=== PATIENT | female | born 1940 | race Caucasian/White ===

== ENCOUNTER 2021-09-06 10:49 | Emergency (ER) | payer OTHER ==
[~2021-09-06] VITALS: Ht 165.1 cm; Wt 65.8 kg
[2021-09-06] MEDS ORDERED: TOPROL XL100 M1 PO (11:12)
[2021-09-06] MEDS ORDERED: LIPITOR20 MG PO (11:13)
[2021-09-06] MEDS ORDERED: LASIX20 MG PO (11:13)
[2021-09-06] MEDS ORDERED: PLAVIX75 MG PO (11:13)
[2021-09-06] MEDS ORDERED: CARDURA XL4 MG PO (11:13)
[2021-09-06] MEDS ORDERED: ARICEPT10 MG PO (11:13)
[2021-09-06] MEDS ORDERED: BIDIL TABLET1 EACH (11:13)
[2021-09-06] MEDS ORDERED: MUPIROCIN1 G1 TOP (12:27)
== END 2021-09-06 12:31 | disposition home or self-care (01) ==
LOC: ER 10:49
DX: S00.83XA Contusion of other part of head, initial encounter (principal); W18.09XA Striking against other object with subsequent fall, initial encounter; Y93.89 Activity, other specified; Y92.018 Other place in single-family (private) house as the place of occurrence of the external cause; Y99.8 Other external cause status

== ENCOUNTER 2023-02-23 14:01 | Emergency (ER) | payer OTHER ==
[~2023-02-23] VITALS: Ht 165.1 cm; Wt 68.0 kg
[~2023-02-23 14:01] MED LIST: ARICEPT10 MG PO; BIDIL TABLET1 EACH; CARDURA XL4 MG PO; LASIX20 MG PO; LIPITOR20 MG PO; MUPIROCIN1 G1 TOP; PLAVIX75 MG PO; TOPROL XL100 M1 PO
[2023-02-23] MEDS ORDERED: NAMENDA XR28 MG (14:16)
== END 2023-02-23 20:20 | disposition home or self-care (01) ==
LOC: ER 14:01
DX: S79.812A Other specified injuries of left hip, initial encounter (principal); S79.811A Other specified injuries of right hip, initial encounter; S39.82XA Other specified injuries of lower back, initial encounter; S39.83XA Other specified injuries of pelvis, initial encounter; W07.XXXA Fall from chair, initial encounter; Y93.89 Activity, other specified; Y92.89 Other specified places as the place of occurrence of the external cause; Y99.8 Other external cause status; Z88.0 Allergy status to penicillin; Z88.6 Allergy status to analgesic agent

== ENCOUNTER 2023-09-02 07:18 | Outpatient (CLI) | payer OTHER ==
[~2023-09-02 07:18] MED LIST changes: +ELIQUIS2.5 MG PO; +NAMENDA XR28 MG; +TRAZODONE HCL50 MG PO
== END 2023-09-02 07:22 | disposition home or self-care (01) ==
LOC: NUCLEAR 07:18
PROVIDERS: ATTEND Specialist
DX: D35.1 Benign neoplasm of parathyroid gland (principal)
CPT/HCPCS: 78072; A9500

== ENCOUNTER 2024-01-08 12:27 | Emergency (ER) | payer OTHER ==
[~2024-01-08] VITALS: Ht 160 cm; Wt 63.5 kg
[2024-01-08] MEDS ORDERED: 0.9 % SODIUM CHLORIDE 1,000 ML IV SCH (13:30)
[2024-01-08 14:00] LABS: HEMATOCRIT 42.5 % (36.0-45.00); HEMOGLOBIN 14.7 g/dL (12.0-15.00); MEAN CELL VOLUME 95.5 fL (80.00-100.00); MEAN CORPUSCULAR HGB CONC 34.6 g/dl (32.0-36.0); PLATELET COUNT 226 K/uL (150-450); RED BLOOD COUNT 4.45 M/uL (4.00-6.00); RED CELL DISTRIBUTION WIDTH 13.6 % (11.5-14.5)
[2024-01-08 14:24] LABS: INR 1.07; PARTIAL THROMBOPLASTIN TIME 29.7 SECONDS (22.0-34.0)
[2024-01-08 14:27] LABS: CALCIUM 9.2 mg/dL (8.5-10.1); CREATININE SERUM 0.99 mg/dL (0.55-1.02); GFR 53.57; POTASSIUM 3.84 mEq/L (3.5-5.1)
[2024-01-08 14:55] LABS: PROTHROMBIN TIME 11.2 SECONDS (9.0-11.5)
[2024-01-08 15:37] LABS: PH,URINE 6.5 (5.0-8.0); URINE APPEARANCE Turbid; URINE BILIRRUBIN Negative (NEGATIVE); URINE BLOOD Moderate; URINE COLOR Yellow; URINE GLUCOSE Negative (NEGATIVE); URINE LEUKOCYTE Large; URINE NITRATE Positive; URINE PROTEIN Trace (NEGATIVE)
[2024-01-08 15:38] LABS: URINE EPITHELIAL CELLS 3.2 uL (0.0-38.8); URINE RBC 23.5 uL (0.0-20.8); URINE WBC 3545.8 uL (0.0-23.2)
[2024-01-08 17:13] LABS: URINE BACTERIA > 9821.2 uL (0.0-1933)
[2024-01-08] MEDS ORDERED: BACTRIM DS TAB1 EACH PO (17:29)
== END 2024-01-08 21:42 | disposition left against medical advice (07) ==
LOC: ER 12:27
PROVIDERS: Emergency Medicine
DX: N39.0 Urinary tract infection, site not specified (principal); M79.604 Pain in right leg; M79.605 Pain in left leg; I10 Essential (primary) hypertension; Z88.0 Allergy status to penicillin; Z88.6 Allergy status to analgesic agent
CPT/HCPCS: 36415; 51702; 70450; 72131; 93005; 96365; 96366; 99284; J7030

== ENCOUNTER 2024-01-18 09:50 | Inpatient (IN) | payer OTHER ==
[~2024-01-18] VITALS: Ht 165.1 cm; Wt 64.4 kg
[~2024-01-18 09:50] MED LIST changes: +BACTRIM DS TAB1 EACH PO
[2024-01-18] MEDS ORDERED: 0.9 % SODIUM CHLORIDE 1,000 ML IV SCH ×2 (10:15→14:30)
[2024-01-18 11:17] LABS: HEMATOCRIT 42.7 % (36.0-45.00); HEMOGLOBIN 14.9 g/dL (12.0-15.00); MEAN CELL VOLUME 93.9 fL (80.00-100.00); MEAN CORPUSCULAR HEMOGLOBIN 32.8 pg (27.00-32.0); MEAN CORPUSCULAR HGB CONC 34.9 g/dl (32.0-36.0); PLATELET COUNT 354 K/uL (150-450); RED BLOOD COUNT 4.55 M/uL (4.00-6.00)
[2024-01-18 11:43] LABS: URINE APPEARANCE Clear; URINE BILIRRUBIN Negative (NEGATIVE); URINE BLOOD Negative; URINE COLOR Yellow; URINE GLUCOSE Negative (NEGATIVE); URINE LEUKOCYTE Moderate; URINE NITRATE Negative; URINE PROTEIN Negative (NEGATIVE)
[2024-01-18 11:47] LABS: URINE BACTERIA 52.9 uL (0.0-1933); URINE EPITHELIAL CELLS 6.4 uL (0.0-38.8); URINE RBC 9.7 uL (0.0-20.8); URINE WBC 136.6 uL (0.0-23.2)
[2024-01-18] MEDS ORDERED: FAMOTIDINE/PF 20 MG/2 ML VIAL IV SCH (14:26)
[2024-01-18] MEDS ORDERED: VANCOMYCIN HCL 1,000 MG VIAL IV SCH (14:26)
[2024-01-18] MEDS ORDERED: APIXABAN 2.5 MG TABLET PO SCH (14:27)
[2024-01-18] MEDS ORDERED: ISOSORBIDE DINITRATE 5 MG TABLET PO SCH (14:28)
[2024-01-18] MEDS ORDERED: DONEPEZIL HCL 10 MG TABLET PO SCH (14:28)
[2024-01-18] MEDS ORDERED: LOSARTAN POTASSIUM 100 MG TABLET PO SCH (14:28)
[2024-01-18] MEDS ORDERED: TRAZODONE HCL 50 MG TABLET PO SCH (14:29)
[2024-01-18] MEDS ORDERED: MEMANTINE HCL 10 MG TABLET PO SCH (14:29)
[2024-01-18] MEDS ORDERED: ONDANSETRON HCL 4 MG in 0.9 % SODIUM CHLORIDE 50 ML IV PRN (14:30)
[2024-01-18 18:21] LABS: INR 1.19; PARTIAL THROMBOPLASTIN TIME 30.2 SECONDS (22.0-34.0); PROTHROMBIN TIME 12.3 SECONDS (9.0-11.5)
[2024-01-18 18:25] LABS: ABG PH 7.463 (7.35-7.45); ABG pCO2 35.9 mmHg (35-45)
[2024-01-18 18:26] LABS: ABG PO2 84.4 mmHg (80-100); BASE EXCESS 1.7 mmol/l; BICARBONATE 25.1 mmol/l (23-25); Tco2 26.2 mmol/l; allen test SATISFACTORY; o2 21 %; puncture site RADIAL LEFT
[2024-01-18 18:40] LABS: CALCIUM 8.4 mg/dL (8.5-10.1); CREATININE SERUM 0.61 mg/dL (0.55-1.02); GFR 93.67; POTASSIUM 4.15 mEq/L (3.5-5.1)
[2024-01-18 18:53] LABS: C-REACTIVE PROTEIN 2.88 MG/DL (0.00-0.29); CKMB 20.6 NG/ML (0.5-3.6)
[2024-01-19] MEDS ORDERED: APIXABAN 2.5 MG TABLET PO SCH (17:00)
[2024-01-20] MEDS ORDERED: METROnidazole 500 MG TABLET PO SCH (01:00)
[2024-01-20 06:15] LABS: HEMATOCRIT 37.4 % (36.0-45.00); HEMOGLOBIN 12.6 g/dL (12.0-15.00); MEAN CELL VOLUME 94.6 fL (80.00-100.00); MEAN CORPUSCULAR HEMOGLOBIN 31.9 pg (27.00-32.0); MEAN CORPUSCULAR HGB CONC 33.7 g/dl (32.0-36.0); PLATELET COUNT 268 K/uL (150-450); RED BLOOD COUNT 3.95 M/uL (4.00-6.00); RED CELL DISTRIBUTION WIDTH 13.1 % (11.5-14.5)
[2024-01-20 07:04] LABS: BILIRUBIN TOTAL 0.57 mg/dL (0.3-1.2); CALCIUM 7.7 mg/dL (8.5-10.1); CREATININE SERUM 0.69 mg/dL (0.55-1.02); GFR 81.25; GLOBULINA 3.4 G/DL (2.4-3.5); POTASSIUM 3.88 mEq/L (3.5-5.1); TOTAL PROTEIN 5.4 gm/dL (6.4-8.2)
[2024-01-20] MEDS ORDERED: LOSARTAN POTASSIUM 25 MG TABLET PO SCH (09:00)
[2024-01-20] MEDS ORDERED: CEFTRIAXONE SODIUM 2,000 MG in 0.9 % SODIUM CHLORIDE 100 ML IV SCH (09:00)
[2024-01-20] MEDS ORDERED: PATIENTS OWN MEDICATION (MEDICAMENTO EN PISO) PO SCH ×2 (09:00)
[2024-01-21] MEDS ORDERED: ACETAMINOPHEN 500 MG GEL..CAP PO PRN (18:00)
[2024-01-21] MEDS ORDERED: FAMOtidine 20 MG TABLET PO SCH (21:00)
[2024-01-22] MEDS ORDERED: MINERAL OIL 30 ML BLIST.PACK PO ONE (17:00)
[2024-01-22] MEDS ORDERED: MAGNESIUM HYDROXIDE 30 ML BLIST.PACK PO ONE (17:00)
[2024-01-22] MEDS ORDERED: LACTULOSE 20 G/30 ML BLIST.PACK PO ONE (17:00)
[2024-01-23] MEDS ORDERED: DOCUSATE CALCIUM 240 MG CAPSULE PO SCH (09:00)
[2024-01-24 07:42] LABS: HEMATOCRIT 36.8 % (36.0-45.00); HEMOGLOBIN 12.7 g/dL (12.0-15.00); MEAN CORPUSCULAR HEMOGLOBIN 31.9 pg (27.00-32.0); MEAN CORPUSCULAR HGB CONC 34.6 g/dl (32.0-36.0); PLATELET COUNT 274 K/uL (150-450); RED CELL DISTRIBUTION WIDTH 13.2 % (11.5-14.5)
[2024-01-24 08:29] LABS: BILIRUBIN TOTAL 0.4 mg/dL (0.3-1.2); CALCIUM 7.7 mg/dL (8.5-10.1); CREATININE SERUM 0.49 mg/dL (0.55-1.02); GFR 120.32; GLOBULINA 3.3 G/DL (2.4-3.5); POTASSIUM 3.51 mEq/L (3.5-5.1); TOTAL PROTEIN 5.3 gm/dL (6.4-8.2)
[2024-01-24] MEDS ORDERED: ZINC OXIDE 30 GM,NYSTATIN 15 GM,SILVER SULFADIAZINE 50 GM TOP SCH (17:40)
[2024-01-25] MEDS ORDERED: METOPROLOL SUCCINATE 50 MG TAB.SR.24H PO SCH (14:43)
[2024-01-25] MEDS ORDERED: LIDOCAINE HCL 100 MG/10ML VIAL ONE (16:59)
[2024-01-25] MEDS ORDERED: ENOXAPARIN SODIUM 60 MG/0.6 ML SYRINGE SUBCUTANEO SCH (21:00)
[2024-01-26] MEDS ORDERED: GUAIFENESIN 200 MG/10 ML BLIST.PACK PO SCH (12:00)
[2024-01-26] MEDS ORDERED: APIXABAN 2.5 MG TABLET PO SCH (17:00)
[2024-01-27] MEDS ORDERED: METOCLOPRAMIDE HCL 5 MG/ML VIAL ONE (12:12)
[2024-01-27] MEDS ORDERED: DEXAMETHASONE SODIUM PHOSP/PF 10 MG/ML VIAL ONE (12:14)
[2024-01-27] MEDS ORDERED: METOPROLOL SUCCINATE 50 MG TAB.SR.24H PO SCH (17:00)
[2024-01-28] MEDS ORDERED: METROnidazole 500 MG TABLET PO SCH (01:00)
[2024-01-28 07:00] LABS: HEMATOCRIT 33.6 % (36.0-45.00); HEMOGLOBIN 11.8 g/dL (12.0-15.00); MEAN CORPUSCULAR HEMOGLOBIN 32.6 pg (27.00-32.0); MEAN CORPUSCULAR HGB CONC 35.1 g/dl (32.0-36.0); PLATELET COUNT 225 K/uL (150-450); RED BLOOD COUNT 3.62 M/uL (4.00-6.00); RED CELL DISTRIBUTION WIDTH 13.6 % (11.5-14.5)
[2024-01-28 07:49] LABS: ALBUMIN 1.8 gm/dL (3.4-5.0); BILIRUBIN TOTAL 0.27 mg/dL (0.3-1.2); CALCIUM 7.6 mg/dL (8.5-10.1); CREATININE SERUM 0.43 mg/dL (0.55-1.02); GFR 139.89; POTASSIUM 3.54 mEq/L (3.5-5.1); TOTAL PROTEIN 4.8 gm/dL (6.4-8.2)
[2024-01-28] MEDS ORDERED: IPRATROPIUM BROMIDE 0.5 MG/2.5 ML AMPUL.NEB IH SCH (12:00)
[2024-01-30 11:56] LABS: HEMATOCRIT 33.5 % (36.0-45.00); HEMOGLOBIN 11.5 g/dL (12.0-15.00); MEAN CELL VOLUME 92.3 fL (80.00-100.00); MEAN CORPUSCULAR HEMOGLOBIN 31.7 pg (27.00-32.0); MEAN CORPUSCULAR HGB CONC 34.4 g/dl (32.0-36.0); PLATELET COUNT 196 K/uL (150-450); RED BLOOD COUNT 3.63 M/uL (4.00-6.00); RED CELL DISTRIBUTION WIDTH 13.7 % (11.5-14.5)
[2024-01-30] MEDS ORDERED: SODIUM CHLORIDE 0.45 % 1,000 ML IV SCH (12:30)
[2024-01-30 12:39] LABS: ALBUMIN 1.7 gm/dL (3.4-5.0); BILIRUBIN TOTAL 0.2 mg/dL (0.3-1.2); CALCIUM 7.7 mg/dL (8.5-10.1); CREATININE SERUM 0.56 mg/dL (0.55-1.02); GFR 103.13; POTASSIUM 3.52 mEq/L (3.5-5.1); TOTAL PROTEIN 4.7 gm/dL (6.4-8.2)
[2024-01-30] MEDS ORDERED: LEVALBUTEROL HCL 0.63 MG/3 ML SOLUTION IH SCH (12:43)
== END 2024-02-01 16:17 | disposition home or self-care (01) | DRG 579 ==
LOC: ER 09:50 → SEC-K 14:47 → MEDI 14:47 → MEDJ 01-23 09:20
PROVIDERS: Emergency Medicine; General Practice; Student in an Organized Health Care Education/Training Program; ADMIT Internal Medicine; ATTEND Internal Medicine
PROC: 0JD70ZZ Extraction of Back Subcutaneous Tissue and Fascia, Open Approach (ICD-10-PCS; principal; 2024-01-25)
DX: L89.153 Pressure ulcer of sacral region, stage 3 (principal); J18.9 Pneumonia, unspecified organism; L97.529 Non-pressure chronic ulcer of other part of left foot with unspecified severity; L08.9 Local infection of the skin and subcutaneous tissue, unspecified; B96.20 Unspecified Escherichia coli [E. coli] as the cause of diseases classified elsewhere; B96.5 Pseudomonas (aeruginosa) (mallei) (pseudomallei) as the cause of diseases classified elsewhere; B95.2 Enterococcus as the cause of diseases classified elsewhere; B96.4 Proteus (mirabilis) (morganii) as the cause of diseases classified elsewhere; B96.89 Other specified bacterial agents as the cause of diseases classified elsewhere; G30.9 Alzheimer's disease, unspecified; F02.80 Dementia in other diseases classified elsewhere, unspecified severity, without behavioral disturbance, psychotic disturbance, mood disturbance, and anxiety; E78.5 Hyperlipidemia, unspecified; Z74.01 Bed confinement status; I25.10 Atherosclerotic heart disease of native coronary artery without angina pectoris; I10 Essential (primary) hypertension; Z20.822 Contact with and (suspected) exposure to COVID-19

== ENCOUNTER 2024-05-07 16:10 | Inpatient (IN) | payer OTHER ==
[~2024-05-07] VITALS: Ht 152.4 cm; Wt 47.6 kg
[~2024-05-07 16:10] MED LIST changes: +LIPITOR40 M1 PO; +TOPROL XL25 M1 PO
--- NOTE | 2024-05-07 16:21 | NUR ---
SE RECIBE PACIENTE ALERTA Y ACTIVA EN COMPANIA DE FAMILIAR Y PARAMEDICOS DE AMBULANCIA. LOS CUALES REFIERE QUE PACIENTE AVITIA ESTADO PRESENTANDO SINTOMAS DE HEMATOMAS EN EXTREMIDADES INFERIORES. AL MOMENTO FAMILIAR DE PTE REFIERE QUE ESTA EN TRATAMIENTO POR ULCERAS DE PRESION EN AREA SACRAL Y EN PIERNA IZQUIERDA CON PARCHOS DE ALLEVYN. FAMILIAR REFIERE QUE PTE ESTUVO HOSPITALIZADA Y SE LE MARTA DE SARANYA EL PASADO NICCI CON ANTIBIOTICOS PARA EL HOGAR.
--- NOTE | 2024-05-07 20:42 | NUR ---
MR CHAN ORIENTA PTE Y FAMILIAR SOBRE NAVARRO DE MUESTRAS LAS CUALES SE EXTRAEN BAJO MEDIDAS ASEPTICAS Y SE ENVIAN A LAB.
[2024-05-07 21:47] LABS: HEMATOCRIT 38.5 % (36.0-45.00); HEMOGLOBIN 12.9 g/dL (12.0-15.00); MEAN CELL VOLUME 90.1 fL (80.00-100.00); MEAN CORPUSCULAR HEMOGLOBIN 30.1 pg (27.00-32.0); MEAN CORPUSCULAR HGB CONC 33.4 g/dl (32.0-36.0); PLATELET COUNT 248 K/uL (150-450); RED BLOOD COUNT 4.28 M/uL (4.00-6.00); RED CELL DISTRIBUTION WIDTH 14.7 % (11.5-14.5)
[2024-05-07 22:02] LABS: PH,URINE 5.5 (5.0-8.0); URINE APPEARANCE Cloudy; URINE BILIRRUBIN Negative (NEGATIVE); URINE BLOOD Trace; URINE COLOR Dark Yellow; URINE GLUCOSE Negative (NEGATIVE); URINE KETONE Negative (NEGATIVE); URINE LEUKOCYTE Moderate; URINE NITRATE Negative
[2024-05-07 22:06] LABS: URINE BACTERIA 3362.9 uL (0.0-1933); URINE CAST 7.17 uL (0.0-1.40); URINE EPITHELIAL CELLS 27.2 uL (0.0-38.8); URINE WBC 381.7 uL (0.0-23.2)
[2024-05-07 22:14] LABS: INR 1.4; PROTHROMBIN TIME 14.3 SECONDS (9.0-11.5)
[2024-05-07 22:28] LABS: ALBUMIN 2.3 gm/dL (3.4-5.0); BILIRUBIN TOTAL 0.9 mg/dL (0.3-1.2); CALCIUM 8.3 mg/dL (8.5-10.1); CREATININE SERUM 0.97 mg/dL (0.55-1.02); GFR 54.71; GLOBULINA 4.7 G/DL (2.4-3.5)
[2024-05-07 22:28] LABS: URINE PROTEIN 100 (NEGATIVE)
[2024-05-07 22:30] LABS: URINE YEAST MODERATE /hpf
[2024-05-07 22:38] LABS: POTASSIUM 2.81 mEq/L (3.5-5.1)
[2024-05-07] MEDS ORDERED: 0.9 % SODIUM CHLORIDE 1,000 ML IV SCH (23:45)
[2024-05-07] MEDS ORDERED: POTASSIUM CHLORIDE/D5W 20 MEQ/1,000 ML PIGGYBAG IV ONE (23:45)
--- NOTE | 2024-05-08 03:57 | NUR ---
SE RECIBE A PTE ALERTA Y ACTIVO EN COMPANIA DE FAMILIAR ES RECIBIDA A UNIDADA DE CRITICO. SE CONECTA A PTE A MONITOR CARDIACO CON BP CADA 30MIN. PTE CON CANALIZACION #24 EN BRAZO GHANSHYAM PATENTE BERNY DE EDEMA Y ERITEMA. SE SALVADOR MUESTRAS PENDIENTES Y SE ENVIAN.
--- NOTE | 2024-05-08 08:13 | NUR ---
7:00AM SE RECIBE PTE ALERTA Y DESORIENTADA EN CAMA #3 DE UNIDAD DE CRITICO. PTE EN CAMA CON BARANDAS ELEVADAS, CABECERA A 30 GRADOS, CONECTADA A MONITOR CARDIACO CON OXIMETRIA CONTINUA. PTE CON CN A 3LTS COLOCADA, SE OBSERVAN RESTRICCIONES X2 EN EXTREMIDADES SUPERIORES COLOCADAS. PTE CON H/L #24 EN BRAZO LT BERNY DE EDEMA CON 0.9NSS DE 1000ML BAJANDO A 20ML/HR Y [id number]/D5W DE 1000ML BAJANDO A 80ML/HR. PTE CON BELLA COLOCADO BAJANADO A GRAVEDAD. PTE CON ULCERA EN AREA SACRAL, SE KHAI CAMBIOS DE POSICION A PTE. SE MIDEN S/V A PTE Y SE DOCUMENTAN. PTE EN ESPERA DE CONSULTA CON MEDICINA INTERA. PTE CON DNR+DNI+NO DIALYSIS+NO TRANSFUSIONES FIRMADO POR FAMILIAR. 8:00AM SE ORIENTA A FAMILIAR SOBRE PROTOCOLO DE UNIDAD DE CRITICO, FAMILIAR REFIERE ENTENDER Y SE RETIRA. SE CANALIZA A PTE EN BRAZO RT CON #18 UTILIZANDO MEDIDAS ASEPTICAS. SE MIDEN S/V A PTE Y SE DOCUMENTAN.
[2024-05-08] MEDS ORDERED: MORPHINE SULFATE 4 MG/ML VIAL IV PRN (11:15)
[2024-05-08] MEDS ORDERED: ENALAPRILAT DIHYDRATE 1.25 MG/ML VIAL IV PRN (11:15)
[2024-05-08] MEDS ORDERED: ONDANSETRON HCL 2 MG/ML VIAL IV PRN (11:15)
[2024-05-08] MEDS ORDERED: POTASSIUM CHLORIDE 20MEQ/100ML H2O PB IV ONE (11:15)
[2024-05-08] MEDS ORDERED: HALOPERIDOL LACTATE 5 MG/ML AMPUL IM PRN (11:15)
[2024-05-08] MEDS ORDERED: MORPHINE SULFATE 2 MG/ML CARTRIDGE IV PRN (16:30)
[2024-05-08] MEDS ORDERED: MEROPENEM 500 MG/VIAL VIAL IV SCH (17:00)
[2024-05-08] MEDS ORDERED: ENOXAPARIN SODIUM 40 MG/0.4 ML SYRINGE SUBCUTANEO SCH (21:00)
[2024-05-09] MEDS ORDERED: METRONIDAZOLE/SODIUM CHLORIDE 500 MG/100 ML PIGGYBACK IV SCH (01:00)
[2024-05-09] MEDS ORDERED: CEFTRIAXONE SODIUM 2,000 MG VIAL IV SCH (09:00)
[2024-05-09 14:57] LABS: HEMATOCRIT 36.7 % (36.0-45.00); HEMOGLOBIN 12.3 g/dL (12.0-15.00); MEAN CORPUSCULAR HEMOGLOBIN 30.5 pg (27.00-32.0); MEAN CORPUSCULAR HGB CONC 33.5 g/dl (32.0-36.0); PLATELET COUNT 221 K/uL (150-450); RED BLOOD COUNT 4.03 M/uL (4.00-6.00); RED CELL DISTRIBUTION WIDTH 14.9 % (11.5-14.5)
[2024-05-09 15:31] LABS: BILIRUBIN TOTAL 0.45 mg/dL (0.3-1.2); CALCIUM 7.8 mg/dL (8.5-10.1); CREATININE SERUM 1.01 mg/dL (0.55-1.02); GFR 52.22; GLOBULINA 4.2 G/DL (2.4-3.5); POTASSIUM 3.38 mEq/L (3.5-5.1); TOTAL PROTEIN 6.2 gm/dL (6.4-8.2)
[2024-05-09] MEDS ORDERED: MEGESTROL ACETATE 400 MG/10 ML BLIST PACK PO SCH (17:00)
[2024-05-09] MEDS ORDERED: ENOXAPARIN SODIUM 60 MG/0.6 ML SYRINGE SUBCUTANEO SCH (21:00)
[2024-05-10 05:04] LABS: HEMATOCRIT 33.5 % (36.0-45.00); HEMOGLOBIN 11.4 g/dL (12.0-15.00); MEAN CELL VOLUME 88.8 fL (80.00-100.00); MEAN CORPUSCULAR HEMOGLOBIN 30.2 pg (27.00-32.0); PLATELET COUNT 189 K/uL (150-450); RED BLOOD COUNT 3.77 M/uL (4.00-6.00); RED CELL DISTRIBUTION WIDTH 15.1 % (11.5-14.5)
[2024-05-10 05:32] LABS: ALBUMIN 1.8 gm/dL (3.4-5.0); BILIRUBIN TOTAL 0.85 mg/dL (0.3-1.2); CALCIUM 7.7 mg/dL (8.5-10.1); CREATININE SERUM 0.77 mg/dL (0.55-1.02); GFR 71.42; GLOBULINA 3.4 G/DL (2.4-3.5); TOTAL PROTEIN 5.2 gm/dL (6.4-8.2)
[2024-05-10 06:03] LABS: C-REACTIVE PROTEIN 6.56 MG/DL (0.00-0.29)
[2024-05-10 06:04] LABS: POTASSIUM 2.86 mEq/L (3.5-5.1)
[2024-05-10 06:06] LABS: ERYTHROCYTE SEDIMENTATION RATE 47 mm/hr
[2024-05-10] MEDS ORDERED: MAGNESIUM SULFATE IN WATER 50 ML IV NR (06:45)
[2024-05-10] MEDS ORDERED: POTASSIUM CHLORIDE 20MEQ/100ML H2O PB IV SCH (09:00)
[2024-05-10] MEDS ORDERED: SODIUM CHLORIDE 0.45 % 1,000 ML IV SCH (10:15)
[2024-05-10] MEDS ORDERED: METOPROLOL SUCCINATE 25 MG TAB.SR.24H PO SCH (12:00)
[2024-05-10 12:53] LABS: ob POSITIVE (NEGATIVE)
[2024-05-10] MEDS ORDERED: LACTOBACILLUS ACIDOPHILUS 1 CAP CAP PO SCH (13:00)
[2024-05-11 12:19] LABS: CALCIUM 7.6 mg/dL (8.5-10.1); CREATININE SERUM 0.74 mg/dL (0.55-1.02); GFR 74.77; POTASSIUM 3.82 mEq/L (3.5-5.1)
[2024-05-11] MEDS ORDERED: POTASSIUM CHLORIDE 20MEQ/100ML H2O PB IV ONE (12:51)
[2024-05-11] MEDS ORDERED: LACTOBACILLUS ACIDOPHILUS 1 CAP CAP PO SCH (13:00)
[2024-05-11] MEDS ORDERED: levoFLOXacin IN DEXTROSE 5 % 5 MG/ML PIGGYBAG IV SCH (21:00)
[2024-05-12 05:03] LABS: GFR 103.13; POTASSIUM 3.4 mEq/L (3.5-5.1)
[2024-05-12 05:06] LABS: CREATININE SERUM 0.56 mg/dL (0.55-1.02)
[2024-05-12] MEDS ORDERED: LEVOTHYROXINE SODIUM 25 MCG TABLET PO SCH (06:00)
[2024-05-12] MEDS ORDERED: ISOSORBIDE DINITRATE 5 MG TABLET PO SCH (09:00)
[2024-05-12] MEDS ORDERED: FUROsemide 20 MG TABLET PO SCH (09:00)
[2024-05-12] MEDS ORDERED: POTASSIUM CHLORIDE 10 MEQ CAPSULE PO NR (11:00)
[2024-05-12] MEDS ORDERED: NAMENDA XR 28 MG PO SCH (12:00)
[2024-05-12] MEDS ORDERED: TRAZODONE HCL 50 MG TABLET PO SCH (12:00)
[2024-05-12] MEDS ORDERED: ARICEPT 23 MG PO SCH (12:00)
[2024-05-12] MEDS ORDERED: levoFLOXacin IN DEXTROSE 5 % 5 MG/ML PIGGYBAG IV SCH (21:00)
[2024-05-13 05:20] LABS: CALCIUM 6.6 mg/dL (8.5-10.1); CREATININE SERUM 0.51 mg/dL (0.55-1.02); GFR 114.89; POTASSIUM 3.02 mEq/L (3.5-5.1)
[2024-05-13] MEDS ORDERED: POTASSIUM CHLORIDE IN WATER 40 MEQ/100 ML PIGGYBAG IV SCH (08:00)
[2024-05-14 08:08] LABS: CALCIUM 6.7 mg/dL (8.5-10.1); CREATININE SERUM 0.51 mg/dL (0.55-1.02); GFR 114.89; MAGNESIUM 1.9 mg/dL (1.8-2.4); POTASSIUM 4.96 mEq/L (3.5-5.1)
[2024-05-15] MEDS ORDERED: METOPROLOL SUCCINATE 25 MG TAB.SR.24H PO SCH (12:00)
[2024-05-17] MEDS ORDERED: METRONIDAZOLE/SODIUM CHLORIDE 500 MG/100 ML PIGGYBACK IV SCH (01:00)
[2024-05-20] MEDS ORDERED: ACETAMINOPHEN 500 MG GEL..CAP PO PRN (12:00)
[2024-05-21] MEDS ORDERED: levoFLOXacin IN DEXTROSE 5 % 5 MG/ML PIGGYBAG IV SCH (09:00)
== END 2024-05-21 15:23 | disposition home or self-care (01) | DRG 580 ==
LOC: ER 16:10 → MEDI 05-08 11:48 → SEC-K 05-08 12:32 → MEDI 05-08 16:06
PROVIDERS: Emergency Medicine; Student in an Organized Health Care Education/Training Program; ADMIT Internal Medicine; ATTEND Internal Medicine
PROC: 02HV33Z Insertion of Infusion Device into Superior Vena Cava, Percutaneous Approach (ICD-10-PCS; 2024-05-10)
PROC: 0JB73ZZ Excision of Back Subcutaneous Tissue and Fascia, Percutaneous Approach (ICD-10-PCS; principal; 2024-05-13)
PROC: B54MZZZ Ultrasonography of Right Upper Extremity Veins (ICD-10-PCS; 2024-05-17)
DX: L89.154 Pressure ulcer of sacral region, stage 4 (principal); E87.0 Hyperosmolality and hypernatremia; M86.8X8 Other osteomyelitis, other site; L08.89 Other specified local infections of the skin and subcutaneous tissue; B95.61 Methicillin susceptible Staphylococcus aureus infection as the cause of diseases classified elsewhere; B96.5 Pseudomonas (aeruginosa) (mallei) (pseudomallei) as the cause of diseases classified elsewhere; E87.6 Hypokalemia; E86.0 Dehydration; G30.9 Alzheimer's disease, unspecified; F02.80 Dementia in other diseases classified elsewhere, unspecified severity, without behavioral disturbance, psychotic disturbance, mood disturbance, and anxiety; Z74.01 Bed confinement status